=== PATIENT | male | born 1960 | race Caucasian/White ===

== ENCOUNTER 2017-09-22 13:03 | Emergency (ER) | payer SELFPAY ==
[~2017-09-22] VITALS: Ht 177.8 cm; Wt 81.6 kg
[2017-09-22 13:12] VITALS: BP 124/70
[2017-09-22] MEDS ORDERED: [UNRECOGNIZED DRUG - OTHER] (13:16)
--- NOTE | 2017-09-22 13:25 | NUR ---
PT. CAME INTO THE ED DUE TO CHEST PAIN SINCE 10 AM AND DIZZYNESS. PT.STATES " AROUND 10 AM MY CHEST STARTED TO HURT, IT CAME ON AND OFF AND I GOT DIZZY ALSO SO I DECIDED TO COME IN". PT. HAS 3/10 INTERMITTENT STERNAL CHEST PAIN THAT IS NON RADIATING AND DESCRIBED PRESSURE. PT. DENIES SOB, DENIES N/V. PT. IS WARM TO TOUCH AND NON DIAPHORETIC. PT. C/O DIZZINESS. PUPILS ARE EQUAL ROUND AND REACTIVE TO LIGHT BILATERALLY 3MM. PT. IS ABLE TO FOLLOW COMMANDS AND RESPONSIVE. PT. STATES " I SUFFERED FROM VERTIGO BEFORE SO I DID NOT THINK MUCH OF MY DIZZYNESS". ER MD NOTIFIED. WILL CONTINUE TO MONITOR. AT BEDSIDE.
[2017-09-22] MEDS ORDERED: ASPIRIN 81 MG TAB.CHEW PO ONE (13:45)
--- NOTE | 2017-09-22 13:50 | NUR ---
RADIOLOGY AT BEDSIDE AT THIS TIME
[2017-09-22 14:10] LABS: BASOPHILS % (AUTO) 0.4 % (0.0-2.0); EOSINOPHILS % (AUTO) 0.4 % (0.0-4.0); HEMATOCRIT 44.8 % (36-52); HEMOGLOBIN 14.8 g/dL (12.0-18.0); LYMPHOCYTES # (AUTO) 1.4 K/uL (2.0-11.5); LYMPHOCYTES % (AUTO) 18.8 % (20.5-51.1); MEAN CORPUSCULAR HEMOGLOBIN 29 pg (27-31); MEAN CORPUSCULAR HGB CONC 33 g/dL (33-37); MEAN CORPUSCULAR VOLUME 87.1 fL (80-94); MONOCYTES # (AUTO) 0.6 K/uL (0.8-1.0); MONOCYTES % (AUTO) 7.7 % (1.7-9.3); NEUTROPHILS # (AUTO) 5.6 K/uL (1.8-7.7); NEUTROPHILS % (AUTO) 72.7 % (42.2-75.2); PLATELET COUNT (AUTO) 260 K/uL (140-450); RED BLOOD CELL COUNT(AUTO) 5.14 MIL/uL (4.20-6.10); RED CELL DISTRIBUTION WIDTH 13.6 % (11.6-13.7); WHITE BLOOD COUNT (AUTO) 7.7 K/uL (4.8-10.8)
--- NOTE | 2017-09-22 14:15 | NUR ---
PT. AMBULATED TO RESTROOM, STEADY GAIT, RR EVEN AND UNLABORED, WILL CONTINUE TO MONITOR.
[2017-09-22 14:45] LABS: ANION GAP 10.8 (8-16); CREATININE 0.9 mg/dL (0.7-1.3); POTASSIUM 3.8 mmol/L (3.5-5.1); TOTAL BILIRUBIN 0.5 mg/dL (0.0-1.0)
--- NOTE | 2017-09-22 15:06 | NUR ---
PT. IS RESTING COMFORTABLY ,VSS. AT BEDSIDE. RR EVEN AND UNLABORED. WILL CONTINUE TO MONITOR.
[2017-09-22 15:34] VITALS: BP 118/72
--- NOTE | 2017-09-22 15:34 | NUR ---
Patient discharged with v/s stable. Written and verbal after care instructions given and explained. Patient verbalized understanding. Ambulatory with steady gait.Pt. provided with copies of lab results . All questions addressed prior to discharge. Advised to follow up with PMD.
== END 2017-09-22 15:34 | disposition home or self-care (01) ==
LOC: MED 13:03
DX: R07.89 Other chest pain (principal); I10 Essential (primary) hypertension; Z87.442 Personal history of urinary calculi
CPT/HCPCS: 36415; 71045; 80053; 83880; 84484; 85025; 93005; 99285; Q0092